=== PATIENT | female | born 1995 | race Caucasian/White ===

== ENCOUNTER 2019-02-08 13:10 | Observation (INO) | payer BC ==
[2019-02-08 14:38] LABS: CHLORIDE,CL 105 mmol/L (98-107); SODIUM,NA 139 mmol/L (136-145)
== END 2019-02-08 15:35 | disposition home or self-care (01) ==
LOC: MW.OB 13:10
PROVIDERS: ADMIT Obstetrics & Gynecology; ATTEND Obstetrics & Gynecology
DX: O99.89 Other specified diseases and conditions complicating pregnancy, childbirth and the puerperium (principal); O24.419 Gestational diabetes mellitus in pregnancy, unspecified control; R51 Headache; H53.8 Other visual disturbances; Z3A.33 33 weeks gestation of pregnancy
CPT/HCPCS: 36415; 59025; 80053; 81003; 82570; 84156; 85027

== ENCOUNTER 2019-02-16 00:46 | Inpatient (IN) | payer BC ==
[2019-02-16] MEDS ORDERED: Butorphanol 1 MG/ML SDV IVPUSH PRN (03:52)
[2019-02-16] MEDS ORDERED: Water For Irrigation,Sterile 1,000 ML Container IRR PRN (03:52)
[2019-02-16] MEDS ORDERED: Ampicillin 2 GM in Sodium Chloride 0.9% 100 ML IV ONE (03:52)
[2019-02-16] MEDS ORDERED: Nalbuphine 10 MG/1 ML Vial IVPUSH PRN (03:52)
[2019-02-16] MEDS ORDERED: Methylergonovine 0.2 MG/1 ML Amp IM PRN (03:52)
[2019-02-16] MEDS ORDERED: Carboprost Tromethamine 250 MCG/1 ML Amp IM PRN (03:52)
[2019-02-16] MEDS ORDERED: Sodium Chloride 0.9% 10 ML SDV IV PRN (03:52)
[2019-02-16] MEDS ORDERED: Misoprostol 200 MCG Tab PO PRN (03:52)
[2019-02-16] MEDS ORDERED: Sodium Chloride 0.9% 10 ML Syringe FLUSH PRN (03:52)
[2019-02-16] MEDS ORDERED: Lidocaine 1% 50 ML MDV INJECT PRN (03:52)
[2019-02-16] MEDS ORDERED: Sodium Chloride 0.9% 2.5 ML Syringe FLUSH PRN (03:52)
[2019-02-16] MEDS ORDERED: Tranexamic Acid 1,000 MG in Sodium Chloride 0.9% 100 ML IV PRN (03:52)
[2019-02-16] MEDS ORDERED: Oxytocin/0.9 % Sodium Chloride 30 UNIT/500 ML BAG IV SCH ×2 (04:00→15:45)
[2019-02-16] MEDS: Lactated Ringers 1,000 ML IV SCH ×3 (04:57→13:55)
--- NOTE | 2019-02-16 07:00 | PCM.LDHP ---
L&D History of Present Illness - General Date of Service: 02/16/19 Admit Problem/Dx: Patient Status Order with Admit Dx/Problem 02/16/19 01:05 Patient Status [ADT] Routine 02/16/19 03:52 Patient Status [ADT] Routine Admission Diagnosis/Problem Admission Diagnosis/Problem Source of Information: Patient History Limitations: Reports: No Limitations - History of Present Illness Improves with: Reports: None Worsens with: Reports: None Associated Symptoms: Reports: N - Related Data Allergies/Adverse Reactions: Allergies Allergy/AdvReac Type Severity Reaction Status Date / Time No Known Allergies Allergy Verified 02/16/19 01:05 Home Medications: Home Meds PNV #116/Iron Fumarate/FA/DHA [Expecta Combo Pack] 1 tab PO DAILY 02/01 [History] glyBURIDE [Glyburide] 1.25 mg PO DAILY 02/05/19 [History] H&P Review of Systems - Review of Systems: Review Of Systems: See Below General: Reports: No Symptoms HEENT: Reports: No Symptoms Pulmonary: Reports: No Symptoms Cardiovascular: Reports: No Symptoms Gastrointestinal: Reports: No Symptoms Genitourinary: Reports: No Symptoms Musculoskeletal: Reports: No Symptoms Skin: Reports: No Symptoms Psychiatric: Reports: No Symptoms Neurological: Reports: No Symptoms Hematologic/Lymphatic: Reports: No Symptoms Immunologic: Reports: No Symptoms L&D Exam - Exam Exam: See Below - Vital Signs Weight: 121.381 kg - OB Specific Fundal Height In cm: 37 Contraction Intensity: Moderate Movement: Active Heart Tones: Present Presentation: Vertex - Pearson Score Pearson Score Cervix Position: Anterior Pearson Score Effacement: >80% Pearson Score Dilation: 3-4 cm Pearson Score 's Station: -3 - Exam General: Alert, Oriented HEENT: PERRLA, Conjunctiva Clear, EACs Clear, EOMI, Hearing Intact, Mucosa Moist & [place], Nares Patent, Normal Nasal Septum, Posterior Pharynx Clear, TMs Clear Neck: Supple, Trachea Midline Lungs: Clear to Auscultation, Normal Respiratory Effort Cardiovascular: Regular Rate, Regular Rhythm GI/Abdominal Exam: Normal Bowel Sounds, Soft, Non-Tender, No Organomegaly, No Distention, No Abnormal Bruit, No Mass, Pelvis Stable Rectal Exam: Normal Exam, Normal Rectal Tone Genitourinary: Normal external exam, Normal bimanual exam, Normal speculum exam Back Exam: Normal Inspection, Full Range of Motion Extremities: Normal Inspection, Normal Range of Motion, Non-Tender, No Pedal Edema, Normal Capillary Refill Skin: Warm, Dry, Intact Neurological: Cranial Nerves Intact, Reflexes Equal Bilateral Psychiatric: Alert, Normal Affect, Normal Mood - Patient Data Lab Results Last 24 hrs: Laboratory Results - last 24 hr 02/16/19 02/16/19 02/16/19 Range/Units 02:30 04:20 04:20 WBC 12.86 H (4.0-11.0) K/uL RBC 4.01 L (4.30-5.90) M/uL Hgb 10.9 L (12.0-16.0) g/dL Hct 32.7 L (36.0-46.0) % MCV 81.5 (80.0-98.0) fL MCH 27.2 (27.0-32.0) pg MCHC 33.3 (31.0-37.0) g/dL RDW Std Deviation 41.0 (28.0-62.0) fl RDW Coeff of Aubrey 14 (11.0-15.0) % Plt Count 221 (150-400) K/uL MPV 10.20 (7.40-12.00) fL Nucleated RBC % 0.0 /100WBC Nucleated RBCs # 0 K/uL Urine Color YELLOW Urine Appearance CLEAR Urine pH 6.0 (5.0-8.0) Ur Specific [place] <= 1.005 (1.001-1.035) Urine Protein NEGATIVE (NEGATIVE) mg/dL Urine Glucose (UA) NEGATIVE (NEGATIVE) mg/dL Urine Ketones NEGATIVE (NEGATIVE) mg/dL Urine Occult Blood NEGATIVE (NEGATIVE) Urine Nitrite NEGATIVE (NEGATIVE) Urine Bilirubin NEGATIVE (NEGATIVE) Urine Urobilinogen 0.2 (<2.0) EU/dL Ur Leukocyte Esterase NEGATIVE (NEGATIVE) Urine RBC 0-1 (0-2/HPF) Urine WBC 0-1 (0-5/HPF) Ur Epithelial Cells RARE (NONE-FEW) Urine Bacteria RARE (NEGATIVE) Blood Type A NEGATIVE Antibody Screen NEGATIVE Result Diagrams: 02/16/19 04:20 Problem List Initiated/Reviewed/Updated: Yes Orders Last 24hrs: Active Orders 24 hr Category Date Time Status Patient Status [ADT] Routine ADT 02/16/19 03:52 Active Heart Tones [RC] CONTINUOUS Care 02/16/19 03:52 Active Non Stress Test [RC] PER UNIT ROUTINE Care 02/16/19 01:05 Active Non Stress Test [RC] PER UNIT ROUTINE Care 02/16/19 03:52 Active May Shower [RC] ASDIRECTED Care 02/16/19 03:52 Active Notify Provider [RC] PRN Care 02/16/19 03:52 Active Up ad Leydi [RC] ASDIRECTED Care 02/16/19 01:05 Active Up ad Leydi [RC] ASDIRECTED Care 02/16/19 03:52 Active Vaginal Exam [RC] Click to Edit Care 02/16/19 01:05 Active Vaginal Exam [RC] PRN Care 02/16/19 03:52 Active Vital Signs [RC] PER UNIT ROUTINE Care 02/16/19 01:05 Active Vital Signs [RC] PER UNIT ROUTINE Care 02/16/19 03:52 Active Butorphanol [Stadol] Med 02/16/19 03:52 Active 1 mg IVPUSH Q1H PRN Carboprost Tromethamine [Hemabate DS] Med 02/16/19 03:52 Active 250 mcg IM ASDIRECTED PRN Lactated Ringers [Ringers, Lactated] 1,000 ml Med 02/16/19 04:00 Active IV ASDIRECTED Lidocaine 1% [Xylocaine 1%] Med 02/16/19 03:52 Active 50 ml INJECT ONETIME PRN Methylergonovine [Methergine] Med 02/16/19 03:52 Active 0.2 mg IM ASDIRECTED PRN Nalbuphine [Nubain] Med 02/16/19 03:52 Active 10 mg IVPUSH Q1H PRN Oxytocin/0.9 % Sodium Chloride [Oxytocin 30 Unit/500 ML Med 02/16/19 04:00 Active -NS] 30 unit in 500 ml IV TITRATE Sodium Chloride 0.9% [Normal Saline] Med 02/16/19 03:52 Active 10 ml IV ASDIRECTED PRN Sodium Chloride 0.9% [Saline Flush] Med 02/16/19 03:52 Active 10 ml FLUSH ASDIRECTED PRN Sodium Chloride 0.9% [Saline Flush] Med 02/16/19 03:52 Active 2.5 ml FLUSH ASDIRECTED PRN Tranexamic Acid [Cyklokapron] 1,000 mg Med 02/16/19 03:52 Active Sodium Chloride 0.9% [Normal Saline] 100 ml IV ONETIME Water For Irrigation,Sterile [Sterile Water for Med 02/16/19 03:52 Active Irrigation] 1,000 ml IRR ASDIRECTED PRN miSOPROStol [Cytotec] Med 02/16/19 03:52 Active 200 mcg PO ONETIME PRN Scalp Electrode [WOMSER] Per Unit Routine Oth 02/16/19 03:52 Ordered Peripheral IV Insertion Adult [OM.PC] Routine Oth 02/16/19 03:52 Ordered Resuscitation Status Routine Resus Stat 02/16/19 03:52 Ordered Medication Orders Butorphanol Tartrate (Stadol) 1 mg IVPUSH Q1H PRN PRN Reason: Pain Carboprost Tromethamine (Hemabate Ds) 250 mcg IM ASDIRECTED PRN PRN Reason: Post Hemorrhage Tranexamic Acid 1,000 mg/ (Sodium Chloride) 110 mls @ 660 mls/hr IV ONETIME PRN PRN Reason: Bleeding Lactated Ringer's (Ringers, Lactated) 1,000 mls @ 150 mls/hr IV ASDIRECTED CRISTINO Last Admin: 02/16/19 04:57 Dose: 150 mls/hr Oxytocin/Sodium Chloride (Oxytocin 30 Unit/500 Ml-Ns) 30 unit in 500 mls @ 999 mls/hr IV TITRATE [facility] Lidocaine HCl (Xylocaine 1%) 50 ml INJECT ONETIME PRN PRN Reason: Laceration repair Methylergonovine Maleate (Methergine) 0.2 mg IM ASDIRECTED PRN PRN Reason: Post Hemorrhage Misoprostol (Cytotec) 200 mcg PO ONETIME PRN PRN Reason: Post Hemorrhage Nalbuphine HCl (Nubain) 10 mg IVPUSH Q1H PRN PRN Reason: Pain (severe 7-10) Sodium Chloride (Saline Flush) 10 ml FLUSH ASDIRECTED PRN PRN Reason: Keep Vein Open Sodium Chloride (Saline Flush) 2.5 ml FLUSH ASDIRECTED PRN PRN Reason: Keep Vein Open Sodium Chloride (Normal Saline) 10 ml IV ASDIRECTED PRN PRN Reason: IV Use Sterile Water (Sterile Water For Irrigation) 1,000 ml IRR ASDIRECTED PRN PRN Reason: delivery Assessment/Plan Comment:: Admitted for labor, started antibiotic as per protocol.
[2019-02-16] MEDS ORDERED: fentaNYL 100 MCG/2 ML SDV ONE (09:28)
[2019-02-16] MEDS ORDERED: Ropivacaine HCl/PF 100 ML ONE (09:29)
[2019-02-16] MEDS: Ampicillin 1 GM in Sodium Chloride 0.9% 50 ML IV SCH ×3 (11:08→22:31)
--- NOTE | 2019-02-16 14:09 | PCM.PREANE ---
Preanesthetic Assessment - Anesthesia/Transfusion/Family Hx Anesthesia History: Prior Anesthesia Without Reaction Family History of Anesthesia Reaction: No - Review of Systems General: No Symptoms Pulmonary: No Symptoms Cardiovascular: No Symptoms Gastrointestinal: No Symptoms Neurological: No Symptoms Other: Reports: Diabetes - Physical Assessment Height: 1.73 m Weight: 121.381 kg ASA Class: 2 Mental Status: Alert & Oriented x3 Dentition: Reports: Normal Dentition - Lab Values: Laboratory Last Values WBC 12.86 K/uL (4.0-11.0) H 02/16/19 04:20 RBC 4.01 M/uL (4.30-5.90) L 02/16/19 04:20 Hgb 10.9 g/dL (12.0-16.0) L 02/16/19 04:20 Hct 32.7 % (36.0-46.0) L 02/16/19 04:20 MCV 81.5 fL (80.0-98.0) 02/16/19 04:20 MCH 27.2 pg (27.0-32.0) 02/16/19 04:20 MCHC 33.3 g/dL (31.0-37.0) 02/16/19 04:20 RDW Std Deviation 41.0 fl (28.0-62.0) 02/16/19 04:20 RDW Coeff of Aubrey 14 % (11.0-15.0) 02/16/19 04:20 Plt Count 221 K/uL (150-400) 02/16/19 04:20 MPV 10.20 fL (7.40-12.00) 02/16/19 04:20 Nucleated RBC % 0.0 /100WBC 02/16/19 04:20 Nucleated RBCs # 0 K/uL 02/16/19 04:20 Urine Color YELLOW 02/16/19 02:30 Urine Appearance CLEAR 02/16/19 02:30 Urine pH 6.0 (5.0-8.0) 02/16/19 02:30 Ur Specific [place] <= 1.005 (1.001-1.035) 02/16/19 02:30 Urine Protein NEGATIVE mg/dL (NEGATIVE) 02/16/19 02:30 Urine Glucose (UA) NEGATIVE mg/dL (NEGATIVE) 02/16/19 02:30 Urine Ketones NEGATIVE mg/dL (NEGATIVE) 02/16/19 02:30 Urine Occult Blood NEGATIVE (NEGATIVE) 02/16/19 02:30 Urine Nitrite NEGATIVE (NEGATIVE) 02/16/19 02:30 Urine Bilirubin NEGATIVE (NEGATIVE) 02/16/19 02:30 Urine Urobilinogen 0.2 EU/dL (<2.0) 02/16/19 02:30 Ur Leukocyte Esterase NEGATIVE (NEGATIVE) 02/16/19 02:30 Urine RBC 0-1 (0-2/HPF) 02/16/19 02:30 Urine WBC 0-1 (0-5/HPF) 02/16/19 02:30 Ur Epithelial Cells RARE (NONE-FEW) 02/16/19 02:30 Urine Bacteria RARE (NEGATIVE) 02/16/19 02:30 Blood Type A NEGATIVE 02/16/19 04:20 Antibody Screen NEGATIVE 02/16/19 04:20 - Allergies Allergies/Adverse Reactions: Allergies Allergy/AdvReac Type Severity Reaction Status Date / Time No Known Allergies Allergy Verified 02/16/19 01:05 - Acknowledgements Anesthesia Type Planned: Epidural Pt an Appropriate Candidate for the Planned Anesthesia: Yes Alternatives and Risks of Anesthesia Discussed w Pt/Guardian: Yes Pt/Guardian Understands and Agrees with Anesthesia Plan: Yes PreAnesthesia Questionnaire - HOME MEDS Home Medications: Home Meds PNV #116/Iron Fumarate/FA/DHA [Expecta Combo Pack] 1 tab PO DAILY 02/01 [History] glyBURIDE [Glyburide] 1.25 mg PO DAILY 02/05/19 [History] - CURRENT (IN HOUSE) MEDS Current Meds: Current Medications Butorphanol Tartrate (Stadol) 1 mg IVPUSH Q1H PRN PRN Reason: Pain Carboprost Tromethamine (Hemabate Ds) 250 mcg IM ASDIRECTED PRN PRN Reason: Post Hemorrhage Tranexamic Acid 1,000 mg/ (Sodium Chloride) 110 mls @ 660 mls/hr IV ONETIME PRN PRN Reason: Bleeding Lactated Ringer's (Ringers, Lactated) 1,000 mls @ 150 mls/hr IV ASDIRECTED CRISTINO Last Admin: 02/16/19 13:55 Dose: 999 mls/hr Oxytocin/Sodium Chloride (Oxytocin 30 Unit/500 Ml-Ns) 30 unit in 500 mls @ 999 mls/hr IV TITRATE CRISTINO Ampicillin Sodium 1 gm/ Sodium (Chloride) 50 mls @ 100 mls/hr IV Q4H [facility] Last Admin: 02/16/19 11:08 Dose: 100 mls/hr Lidocaine HCl (Xylocaine 1%) 50 ml INJECT ONETIME PRN PRN Reason: Laceration repair Methylergonovine Maleate (Methergine) 0.2 mg IM ASDIRECTED PRN PRN Reason: Post Hemorrhage Misoprostol (Cytotec) 200 mcg PO ONETIME PRN PRN Reason: Post Hemorrhage Nalbuphine HCl (Nubain) 10 mg IVPUSH Q1H PRN PRN Reason: Pain (severe 7-10) Sodium Chloride (Saline Flush) 10 ml FLUSH ASDIRECTED PRN PRN Reason: Keep Vein Open Sodium Chloride (Saline Flush) 2.5 ml FLUSH ASDIRECTED PRN PRN Reason: Keep Vein Open Sodium Chloride (Normal Saline) 10 ml IV ASDIRECTED PRN PRN Reason: IV Use Sterile Water (Sterile Water For Irrigation) 1,000 ml IRR ASDIRECTED PRN PRN Reason: delivery Discontinued Medications Fentanyl (Sublimaze) Confirm Administered Dose 100 mcg .ROUTE .STK-MED ONE Stop: 02/16/19 09:29 Ampicillin Sodium 2 gm/ Sodium (Chloride) 100 mls @ 200 mls/hr IV ONETIME ONE Stop: 02/16/19 04:21 Last Admin: 02/16/19 04:58 Dose: 200 mls/hr Ropivacaine (Naropin 0.2%) Confirm Administered Dose 100 mls @ as directed .ROUTE .STK-MED ONE Stop: 02/16/19 09:30
--- NOTE | 2019-02-16 14:12 | PCM.PRNOTE ---
- Free Text/Narrative Note: Anes NOte Patient requests epidural for L&D> Sitting position. Level L3-L4 midline approach. Sterile technique. Chloraprep scrub to lumbar area. Midine approach. Epidural space easily achieved single attempt using ELISSA technique. ELISSA at 4 cm. Epidural cathreaded 5 cm with ease. Secured at 9 cm with sterile clear adhesive dressing. Test 1354 3 cc 1.5% lido with epi negative. 1356 Load 10 cc 0.2% ropivicaine with 1 mcg cc fenatly in slow divided doses. 1400 Pump started using same solutio at 8 cc hr with 6 cc q 20 min prn bolus. Mario well Time with patient [id number] Santos Howell DIRECTOR [facility]
[2019-02-16] MEDS ORDERED: Terbutaline 1 MG/ML SDV SUBCUT PRN (15:45)
[2019-02-16] MEDS ORDERED: Acetaminophen 500 MG Tab PO PRN (17:38)
[2019-02-16] MEDS ORDERED: Witch Hazel Medicated Pads 40/Jar TOP PRN (17:38)
[2019-02-16] MEDS ORDERED: Docusate Sodium 100 MG Cap PO PRN (17:38)
[2019-02-16] MEDS ORDERED: Ibuprofen 400 MG Tab PO PRN (17:38)
[2019-02-16] MEDS ORDERED: Ibuprofen 800 MG Tab PO PRN (17:38)
[2019-02-16] MEDS ORDERED: Benzocaine/Menthol 20%-0.5% Spray 78 GM Cannister TOP PRN (17:38)
[2019-02-16] MEDS ORDERED: Lanolin 100% Cream 7 GM Tube TOP PRN (17:38)
[2019-02-16] MEDS ORDERED: Bisacodyl 10 MG Supp RECTAL PRN (17:38)
[2019-02-16] MEDS ORDERED: oxyCODONE 5 MG Tab PO PRN (17:38)
[2019-02-16] MEDS: Acetaminophen 500 MG Tab PO PRN (21:47)
--- NOTE | 2019-02-17 00:16 | OR ---
SURGEON: Casey Hutchinson MD DATE OF PROCEDURE: Ms. Rhodes is a 23-year-old patient. She is para 1-0-0-1, she is 38+ weeks. She was followed jointly by myself and the nurse binitrotoluene operator in the office. She had no complication; however, the patient has GBS status as positive. She is admitted today with early labor, and at the time of admission, she was 3 to 4 with contractions every 3-4 minutes on their own picked every 2-3 minutes, and the patient started on antibiotic as per protocol. The patient later on, she progressed to 5-6 cm, and after receiving 2 doses of antibiotic, artificial rupture of the membrane was done by me and it was clear fluid and the patient required some touch of Pitocin to stimulate her labor. She progressed and she was able to accomplish a normal spontaneous vaginal delivery of a male fetus. score is reported to be 8 and 9. The weight is not available at this time. The placenta delivered spontaneous complete and intact without any problem. There was a small mild superficial skin laceration, it is not bleeding, did not require any stitches. Estimated blood loss is 250-300 mL. heart rate was category 1 through the entire process of labor. There was no complication in the labor and the delivery. JOSUÉ / CYNTHIA /[id number]
[2019-02-17] MEDS: Acetaminophen 500 MG Tab PO PRN ×2 (02:28→15:53)
--- NOTE | 2019-02-17 07:33 | PCM.POSTAN ---
POST ANESTHESIA ASSESSMENT - VITAL SIGNS Vital Signs: Last Vital Signs Temp 36.6 C 02/17/19 04:16 Pulse 81 02/17/19 04:16 Resp 18 02/17/19 04:16 BP 135/77 02/17/19 04:16 Pulse Ox 96 02/17/19 04:16 - RESPIRATORY Respiratory Status: Respiratory Rate WNL - CARDIOVASCULAR CV Status: Pulse Rate WNL - GASTROINTESTINAL GI Status: No Symptoms - POST OP HYDRATION Hydration Status: Adequate & Stable
--- NOTE | 2019-02-17 07:33 | PCM48HPAN ---
Post Anesthesia Note - EVALUATION WITHIN 48HRS OF ANESTHETIC Vital Signs in Normal Range: Yes Patient Participated in Evaluation: Yes Respiratory Function Stable: Yes Airway Patent: Yes Cardiovascular Function Stable: Yes Hydration Status Stable: Yes Pain Control Satisfactory: Yes Nausea and Vomiting Control Satisfactory: Yes Mental Status Recovered: Yes Vital Signs: Last Vital Signs Temp 36.6 C 02/17/19 04:16 Pulse 81 02/17/19 04:16 Resp 18 02/17/19 04:16 BP 135/77 02/17/19 04:16 Pulse Ox 96 02/17/19 04:16
--- NOTE | 2019-02-17 11:42 | PCM.PNPP ---
- General Info Date of Service: 02/17/19 Functional Status: Reports: Pain Controlled - Review of Systems General: Reports: No Symptoms HEENT: Reports: No Symptoms Pulmonary: Reports: No Symptoms Cardiovascular: Reports: No Symptoms Gastrointestinal: Reports: No Symptoms Genitourinary: Reports: No Symptoms Musculoskeletal: Reports: No Symptoms Skin: Reports: No Symptoms Neurological: Reports: No Symptoms Psychiatric: Reports: No Symptoms - General Info Date of Service: 02/17/19 - Patient Data Vital Signs - Most Recent: Last Vital Signs Temp 36.5 C 02/17/19 08:34 Pulse 94 02/17/19 08:34 Resp 16 02/17/19 08:34 BP 126/74 02/17/19 08:34 Pulse Ox 97 02/17/19 08:34 Weight - Most Recent: 121.38 kg I&O - Last 24 Hours: Intake & Output 02/16/19 02/17/19 02/17/19 22:59 06:59 14:59 Intake Total 2 Balance 2 Lab Results - Last 24 Hours: Laboratory Results - last 24 hr 02/16/19 02/17/19 Range/Units 19:10 06:10 Hgb 9.4 L (12.0-16.0) g/dL Hct 28.3 L (36.0-46.0) % Screen NEGATIVE (NEGATIVE) RhIG Candidate? YES Rhogam Indicated YES, BABY RH POS H Med Orders - Current: Current Medications Acetaminophen (Tylenol Extra Strength) 500 mg PO Q4H PRN PRN Reason: Pain Acetaminophen (Tylenol Extra Strength) 1,000 mg PO Q4H PRN PRN Reason: Pain Last Admin: 02/17/19 02:28 Dose: 1,000 mg Benzocaine/Menthol (Dermoplast Pain Relief 20%-0.5% [place]) 0 gm TOP ASDIRECTED PRN PRN Reason: Perineal Comfort Measure Last Admin: 02/16/19 21:14 Dose: 1 can Bisacodyl (Dulcolax) 10 mg RECTAL ONETIME PRN PRN Reason: Constipation Butorphanol Tartrate (Stadol) 1 mg IVPUSH Q1H PRN PRN Reason: Pain Carboprost Tromethamine (Hemabate Ds) 250 mcg IM ASDIRECTED PRN PRN Reason: Post Hemorrhage Docusate Sodium (Colace) 100 mg PO BID PRN PRN Reason: Constipation Emollient Ointment (Lansinoh Hpa) 0 gm TOP ASDIRECTED PRN PRN Reason: Sore Nipples Tranexamic Acid 1,000 mg/ (Sodium Chloride) 110 mls @ 660 mls/hr IV ONETIME PRN PRN Reason: Bleeding Lactated Ringer's (Ringers, Lactated) 1,000 mls @ 150 mls/hr IV ASDIRECTED CRISTINO Last Admin: 02/16/19 13:55 Dose: 999 mls/hr Oxytocin/Sodium Chloride (Oxytocin 30 Unit/500 Ml-Ns) 30 unit in 500 mls @ 999 mls/hr IV TITRATE CRISTINO Oxytocin/Sodium Chloride (Oxytocin 30 Unit/500 Ml-Ns) 30 unit in 500 mls @ 2 mls/hr IV TITRATE CRISTINO; Protocol Last Titration: 02/16/19 17:47 Dose: 250 munits/min, 250 mls/hr Ibuprofen (Motrin) 400 mg PO Q4H PRN PRN Reason: Pain Ibuprofen (Motrin) 800 mg PO Q6H PRN PRN Reason: Pain Lidocaine HCl (Xylocaine 1%) 50 ml INJECT ONETIME PRN PRN Reason: Laceration repair Methylergonovine Maleate (Methergine) 0.2 mg IM ASDIRECTED PRN PRN Reason: Post Hemorrhage Misoprostol (Cytotec) 200 mcg PO ONETIME PRN PRN Reason: Post Hemorrhage Nalbuphine HCl (Nubain) 10 mg IVPUSH Q1H PRN PRN Reason: Pain (severe 7-10) Oxycodone HCl (Oxycodone) 5 mg PO Q2H PRN PRN Reason: Pain Sodium Chloride (Saline Flush) 10 ml FLUSH ASDIRECTED PRN PRN Reason: Keep Vein Open Sodium Chloride (Saline Flush) 2.5 ml FLUSH ASDIRECTED PRN PRN Reason: Keep Vein Open Sodium Chloride (Normal Saline) 10 ml IV ASDIRECTED PRN PRN Reason: IV Use Sterile Water (Sterile Water For Irrigation) 1,000 ml IRR ASDIRECTED PRN PRN Reason: delivery Terbutaline Sulfate (Brethine) 0.25 mg SUBCUT ASDIRECTED PRN PRN Reason: Tacysystole Witch Piedad (Tucks) 1 pad TOP ASDIRECTED PRN PRN Reason: comfort care Last Admin: 02/16/19 21:14 Dose: 1 tub Discontinued Medications Fentanyl (Sublimaze) Confirm Administered Dose 100 mcg .ROUTE .STK-MED ONE Stop: 02/16/19 09:29 Last Admin: 02/16/19 22:30 Dose: Not Given Ampicillin Sodium 2 gm/ Sodium (Chloride) 100 mls @ 200 mls/hr IV ONETIME ONE Stop: 02/16/19 04:21 Last Admin: 02/16/19 04:58 Dose: 200 mls/hr Ampicillin Sodium 1 gm/ Sodium (Chloride) 50 mls @ 100 mls/hr IV Q4H CRISTINO Last Admin: 02/16/19 22:31 Dose: Not Given Ropivacaine (Naropin 0.2%) Confirm Administered Dose 100 mls @ as directed .ROUTE .STK-MED ONE Stop: 02/16/19 09:30 Last Admin: 02/16/19 22:30 Dose: Not Given - Infant Interaction Infant Disposition, : [place] in Room with Family Infant Interaction: Holding Infant Feeding: Attempted ; Nursed Fair/Poor Support Person: - Recovery Exam Fundal Tone: Firm Fundal Level: 1 Fingerbreadths Below Umbilicus Fundal Placement: Midline Lochia Amount: Scant Lochia Color: Rubra/Red Perineum Description: Other (see below) Other Perinuem Description: labial laceration Episiotomy/Laceration: Approximated Bladder Status: Voiding Urinary Elimination: Voided - Exam General: Alert, Oriented HEENT: Pupils Equal Neck: Supple Lungs: Clear to Auscultation, Normal Respiratory Effort Cardiovascular: Regular Rate, Regular Rhythm GI/Abdominal Exam: Normal Bowel Sounds, Soft, Non-Tender, No Organomegaly, No Distention, No Abnormal Bruit, No Mass, Pelvis Stable Extremities: Normal Inspection, Normal Range of Motion, Non-Tender, No Pedal Edema, Normal Capillary Refill Skin: Warm, Dry, Intact Wound/Incisions: Healing Well Neurological: No New Focal Deficit Psy/Mental Status: Alert, Normal Affect, Normal Mood - Problem List Review Problem List Initiated/Reviewed/Updated: Yes - My Orders Last 24 Hours: My Active Orders 02/16/19 15:45 Oxygen Therapy [RC] ASDIRECTED Oxytocin/0.9 % Sodium Chloride [Oxytocin 30 Unit/500 ML-NS] 30 unit in 500 ml IV TITRATE Terbutaline [Brethine] 0.25 mg SUBCUT ASDIRECTED PRN Medication Administration Instruction [OM.PC] Q3H 02/16/19 17:38 Patient Status [ADT] Routine May Shower [RC] ASDIRECTED Up ad Leydi [RC] ASDIRECTED Acetaminophen [Tylenol Extra Strength] 1,000 mg PO Q4H PRN Acetaminophen [Tylenol Extra Strength] 500 mg PO Q4H PRN Benzocaine/Menthol [Dermoplast Pain Relief 20%-0.5% [place]] 0 gm TOP ASDIRECTED PRN Bisacodyl [Dulcolax] 10 mg RECTAL ONETIME PRN Docusate Sodium [Colace] 100 mg PO BID PRN Ibuprofen [Motrin] 400 mg PO Q4H PRN Ibuprofen [Motrin] 800 mg PO Q6H PRN Lanolin [Lansinoh HPA] See Dose Instructions TOP ASDIRECTED PRN Witch Piedad [Tucks] 1 pad TOP ASDIRECTED PRN oxyCODONE 5 mg PO Q2H PRN Assess Lochia [WOMSER] Per Unit Routine Assess Uterine Involution [WOMSER] Per Unit Routine Peripheral IV Discontinue [OM.PC] Routine 02/17/19 Breakfast Regular Diet [DIET] - Plan Plan:: Admitted for labor, started antibiotic as per protocol.
[2019-02-17 19:15] VITALS: BP 123/79; PULSE 77
== END 2019-02-17 20:58 | disposition home or self-care (01) | DRG 560 ==
LOC: MW.OBCHECK 00:46 → MW.OB 00:47 → OBSVTOIN 17:28 → MW.OB 21:45
PROVIDERS: ADMIT Obstetrics & Gynecology; ATTEND Obstetrics & Gynecology
PROC: 10E0XZZ Delivery of Products of Conception, External Approach (ICD-10-PCS; principal; 2019-02-16)
PROC: 10907ZC Drainage of Amniotic Fluid, Therapeutic from Products of Conception, Via Natural or Artificial Opening (ICD-10-PCS; 2019-02-16)
PROC: 00HU33Z Insertion of Infusion Device into Spinal Canal, Percutaneous Approach (ICD-10-PCS; 2019-02-16)
PROC: 3E0R3BZ Introduction of Anesthetic Agent into Spinal Canal, Percutaneous Approach (ICD-10-PCS; 2019-02-16)
PROC: 3E0234Z Introduction of Serum, Toxoid and Vaccine into Muscle, Percutaneous Approach (ICD-10-PCS; 2019-02-17)
DX: O99.824 Streptococcus B carrier state complicating childbirth (principal); O24.425 Gestational diabetes mellitus in childbirth, controlled by oral hypoglycemic drugs; O36.63X0 Maternal care for excessive fetal growth, third trimester, not applicable or unspecified; O70.0 First degree perineal laceration during delivery; Z3A.38 38 weeks gestation of pregnancy; Z37.0 Single live birth; O26.893 Other specified pregnancy related conditions, third trimester; Z67.11 Type A blood, Rh negative; Z90.49 Acquired absence of other specified parts of digestive tract; O99.344 Other mental disorders complicating childbirth; F41.8 Other specified anxiety disorders
CPT/HCPCS: 36415; 51702; 59025; 59409; 81001; 85014; 85018; 85027; 85460; 86850; 86900; 86901; A9270-GY; J0290; J2590; J2792; J2795; J3010; J7030; J7050; J7120

== ENCOUNTER 2024-08-08 00:17 | Emergency (ER) | payer BC ==
[2024-08-08] MEDS ORDERED: Sodium Chloride 0.9% 2.5 ML Syringe FLUSH PRN (01:19)
[2024-08-08] MEDS ORDERED: Sodium Chloride 0.9% 20 ML SDV IV PRN (01:19)
[2024-08-08] MEDS ORDERED: Sodium Chloride 0.9% 10 ML Syringe FLUSH PRN (01:19)
[2024-08-08] MEDS: Sodium Chloride 0.9% 1,000 ML IV ONE (01:38)
[2024-08-08] MEDS: Ketorolac 30 MG/ML SDV IVPUSH ONE (01:42)
[2024-08-08] MEDS: Morphine 2 MG/ML SYRINGE IVPUSH ONE (01:43)
[2024-08-08] MEDS: Ondansetron 4 MG/2 ML SDV IVPUSH ONE (01:48)
[2024-08-08 01:52] LABS: BASOPHILS ABSOLUTE AUTO 0.05 K/uL (0.00-0.20); BASOPHILS PERCENT AUTO 0.4 % (0.0-1.0); EOSINOPHILS ABSOLUTE AUTO 0.18 K/uL (0.00-0.45); EOSINOPHILS PERCENT AUTO 1.5 % (0.0-6.0); HEMATOCRIT 41.6 % (37.0-47.0); HEMOGLOBIN 14.4 g/dL (12.0-16.0); IMMATURE GRAN ABSOLUTE AUTO 0.03 K/uL (0.00-0.05); IMMATURE GRAN PERCENT AUTO 0.2 % (0.0-0.4); LYMPHOCYTES ABSOLUTE AUTO 3.09 K/uL (1.00-4.80); LYMPHOCYTES PERCENT AUTO 25.6 % (24.0-44.0); MEAN CORPUSCULAR HEMOGLOBIN 28.1 pg (28.0-32.0); MEAN CORPUSCULAR HGB CONC 34.6 g/dL (32.0-36.0); MEAN CORPUSCULAR VOLUME 81.3 fL (83.0-99.0); MEAN PLATELET VOLUME 9.3 fL (9.4-12.3); MONOCYTES PERCENT AUTO 6.6 % (0.0-8.0); NEUTROPHILS PERCENT AUTO 65.7 % (41.0-71.0); PLATELET COUNT,PLT 306 K/uL (150-400); RED BLOOD CELL COUNT 5.12 M/uL (4.10-5.30); WHITE BLOOD CELL COUNT,WBC 12.05 K/uL (3.9-11.3)
[2024-08-08 02:14] LABS: A/G RATIO 1.3 (0.9-1.6); ALBUMIN 4.2 g/dL (3.4-5.0); BILIRUBIN TOTAL 0.4 mg/dL (0.2-1.0); CALCIUM 9.3 mg/dL (8.5-10.1); CARBON DIOXIDE,CO2 24.8 mmol/L (21.0-32.0); CREATININE 0.7 mg/dL (0.6-1.0); EST CRCL DRUG DOSING (CG) 117.47 mL/min; POTASSIUM,K 3.5 mmol/L (3.5-5.1); PROTEIN TOTAL,TP 7.5 g/dL (6.4-8.2)
[2024-08-08 02:47] LABS: APPEARANCE,URINE CLEAR; BILIRUBIN,URINE NEGATIVE (NEGATIVE); COLOR,URINE YELLOW; GLUCOSE,URINE 500 mg/dL (NEGATIVE); KETONES,URINE TRACE mg/dL (NEGATIVE); LEUKOCYTE ESTERASE,URINE NEGATIVE (NEGATIVE); NITRITE,URINE NEGATIVE (NEGATIVE); OCCULT BLOOD,URINE NEGATIVE (NEGATIVE); PH,URINE 5.5 (5.0-8.0); PROTEIN,URINE NEGATIVE (NEGATIVE); UROBILINOGEN,URINE 0.2 EU/dL (<2.0)
[2024-08-08 04:02] VITALS: BP 117/72; PULSE 63
== END 2024-08-08 04:00 | disposition home or self-care (01) ==
LOC: MW.ED 00:17
DX: N23 Unspecified renal colic (principal); E86.0 Dehydration; Z75.8 Other problems related to medical facilities and other health care; Z90.49 Acquired absence of other specified parts of digestive tract
CPT/HCPCS: 36415; 80053; 81003; 81025; 83690; 85025; 96361; 96374; 96375; 99284; J1885; J2270; J2405; J7030; 99283